=== PATIENT | male | born 1980 | race Caucasian/White ===

== ENCOUNTER 2020-06-20 10:08 | Emergency (ER) | payer OTHER ==
[~2020-06-20] VITALS: Ht 162.6 cm; Wt 92.0 kg
[2020-06-20] MEDS ORDERED: IBUPROFEN 800 MG TABLET PO ONE (11:00)
[2020-06-20 11:40] VITALS: BP 129/71
== END 2020-06-20 12:21 | disposition home or self-care (01) ==
LOC: EMS 10:10
DX: S83.92XA Sprain of unspecified site of left knee, initial encounter (principal); S40.011A Contusion of right shoulder, initial encounter; F17.210 Nicotine dependence, cigarettes, uncomplicated; W17.89XA Other fall from one level to another, initial encounter; Y93.89 Activity, other specified; Y92.89 Other specified places as the place of occurrence of the external cause; Y99.8 Other external cause status